=== PATIENT | female | born 1985 | race Hispanic/Latino ===

== ENCOUNTER 2021-11-09 10:33 | Emergency (ER) | payer OTHER ==
[2021-11-09] MEDS ORDERED: CYCLOBENZAPRINE HCL 10 MG TABLET PO ONE (12:30)
[2021-11-09] MEDS ORDERED: KETOROLAC 60 MG VIAL (30MG/ML) IM ONE (12:30)
[2021-11-09] MEDS ORDERED: CYCL10TA16 PO (13:42)
[2021-11-09] MEDS ORDERED: NAPR-1180 PO (13:42)
[2021-11-09 13:50] VITALS: BP 136/69
== END 2021-11-09 13:50 | disposition home or self-care (01) ==
LOC: EDH 10:33
DX: S16.1XXA Strain of muscle, fascia and tendon at neck level, initial encounter (principal); S09.90XA Unspecified injury of head, initial encounter; Z79.1 Long term (current) use of non-steroidal anti-inflammatories (NSAID); V49.49XA Driver injured in collision with other motor vehicles in traffic accident, initial encounter; Y93.89 Activity, other specified; Y92.89 Other specified places as the place of occurrence of the external cause; Y99.8 Other external cause status
CPT/HCPCS: 99284; 70450; 81025; 72125; 96372; J1885